=== PATIENT | male | born 1940 | race Hispanic/Latino ===

== ENCOUNTER → 2018-03-12 | Outpatient (CLI) | payer OTHER ==
[~2018-03-12] MED LIST: ASPI-1197 PO; FERROUS SULFATE PO; LISI1TAB11 PO; VITA1TAB22 PO
== END | disposition home or self-care (01) ==
LOC: SHCH 14:39
PROVIDERS: ATTEND Internal Medicine Cardiovascular Disease
DX: I34.0 Nonrheumatic mitral (valve) insufficiency (principal)
CPT/HCPCS: 93306

== ENCOUNTER → 2018-03-19 | Outpatient (CLI) | payer OTHER ==
[~2018-03-19] MED LIST changes: +REGADENOSON 0.4 MG/5 ML PF SYG IVP SCH
== END | disposition home or self-care (01) ==
LOC: SHCH 07:36 → EDUNIT# 08:00
PROVIDERS: ATTEND Internal Medicine Cardiovascular Disease
DX: R06.02 Shortness of breath (principal)
CPT/HCPCS: 78452; 93017; 96374; A9500 ×2; J2785

== ENCOUNTER 2018-04-14 06:32 | Day surgery (SDC) | payer OTHER ==
[2018-04-09 13:55] VITALS: BP 144/69
[2018-04-09 14:23] LABS: BASOPHILS % (AUTO) 0.7 % (0.0-5.0); EOSINOPHILS % (AUTO) 2.4 % (0.0-8.0); HEMATOCRIT 32.9 % (42-54); LYMPHOCYTES % (AUTO) 34.6 % (21.0-51.0); MEAN CORPUSCULAR HEMOGLOBIN 26.9 pg (27.0-33.0); MEAN CORPUSCULAR HGB CONC 33.8 g/dL (32.0-36.0); MEAN CORPUSCULAR VOLUME 79.5 fL (79-99); MONOCYTES % (AUTO) 6.9 % (3.0-13.0); NEUTROPHILS % (AUTO) 55.4 % (40.0-77.0); NUCLEATED RED BLOOD CELLS 0.1 % (0.0-0.19); PLATELET COUNT (AUTO) 266 K/uL (130-400); RED BLOOD CELL COUNT(AUTO) 4.14 MIL/uL (4.50-6.20); RED CELL DISTRIBUTION WIDTH 16.6 % (11.0-15.5); WHITE BLOOD COUNT (AUTO) 6.4 K/uL (4.8-10.8)
[2018-04-09 14:31] LABS: POTASSIUM 4.7 mmol/L (3.5-5.1)
[2018-04-09 14:31] LABS: APPEARANCE,URINE Clear (CLEAR); BILIRUBIN,URINE Negative (NEGATIVE); COLOR,URINE Yellow (YELLOW); GLUCOSE, URINE (UA) Negative (NEGATIVE); KETONES,URINE Negative (NEGATIVE); LEUKOCYTE ESTERASE ,URINE Negative (NEGATIVE); NITRATE,URINE Negative (NEGATIVE); OCCULT BLOOD,URINE Negative (NEGATIVE); PROTEIN,URINE Negative (NEGATIVE); UROBILINOGEN,URINE 0.2 mg/dL (0.2-1.0)
[2018-04-09 14:33] LABS: INR 0.91 (0.85-1.15); PARTIAL THROMBOPLASTIN TIME 25.9 SEC (26.3-35.5); PROTHROMBIN TIME 9.6 SEC (9.6-11.6)
[~2018-04-14] VITALS: Ht 172.7 cm; Wt 88.5 kg
[2018-04-14] VITALS (10 sets, daily range): BP systolic 121–153; BP diastolic 48–74
[~2018-04-14 06:32] MED LIST changes: -REGADENOSON 0.4 MG/5 ML PF SYG IVP SCH; +SODIUM CHLORIDE 0.9% 500ML 500 ML IV SCH
[2018-04-14] MEDS ORDERED: SODIUM CHLORIDE 0.9% 1000ML 1,000 ML IV ONE (07:39)
[2018-04-14] MEDS ORDERED: LIDOCAINE HCL MPF 1% 5ML VIAL ONE (08:39)
[2018-04-14] MEDS ORDERED: NITROGLYCERIN 5 MG/ML 10 ML VIAL IV ONE (08:40)
[2018-04-14] MEDS ORDERED: IOHEXOL-350 50ML VIAL IV ONE (08:40)
[2018-04-14] MEDS ORDERED: IOHEXOL 350 MG/ML 100ML INFUS..BTL IV ONE (08:40)
[2018-04-14] MEDS ORDERED: IOPAMIDOL-370 75 ML VIAL IV ONE (09:16)
[2018-04-14] MEDS ORDERED: SODIUM CHLORIDE 0.9% 1000ML 1,000 ML IV SCH (09:48)
[2018-04-14] MEDS ORDERED: GLUCAGON 1MG KIT 1 MG ML IM PRN (10:00)
[2018-04-14] MEDS ORDERED: METOPROLOL TARTRATE 1 MG/ML 5ML VIAL IV PRN (10:00)
[2018-04-14] MEDS ORDERED: DEXTROSE 50%-WATER 50 ML DISP.SYRIN IV PRN (10:00)
[2018-04-14] MEDS ORDERED: NITROGLYCERIN 0.4 MG SL TAB SL PRN (10:00)
[2018-04-14] MEDS ORDERED: SODIUM CHLORIDE 0.9% 10 ML VIAL IVP SCH (10:00)
[2018-04-15] MEDS ORDERED: FERROUS SULFATE 325 MG TABLET.DR PO SCH (09:00)
[2018-04-15] MEDS ORDERED: VITAMIN B COMPLEX 1 CAPSULE PO SCH (09:00)
[2018-04-15] MEDS ORDERED: ISOSORBIDE MONO 30MG TAB SR PO SCH (09:00)
[2018-04-15] MEDS ORDERED: HYDROCHLOROTHIAZIDE 25 MG TABLET PO SCH (09:00)
[2018-04-15] MEDS ORDERED: ASPIRIN 81MG TAB.CHEW PO SCH (09:00)
[2018-04-15] MEDS ORDERED: LISINOPRIL 20 MG TABLET PO SCH (09:00)
== END 2018-04-14 15:20 | disposition home or self-care (01) ==
LOC: DAH 06:32
PROVIDERS: ATTEND Internal Medicine Cardiovascular Disease
DX: I25.118 Atherosclerotic heart disease of native coronary artery with other forms of angina pectoris (principal); I65.23 Occlusion and stenosis of bilateral carotid arteries; I10 Essential (primary) hypertension; K21.9 Gastro-esophageal reflux disease without esophagitis; Z85.46 Personal history of malignant neoplasm of prostate; Z98.890 Other specified postprocedural states; Z79.899 Other long term (current) drug therapy; Z68.30 Body mass index [BMI] 30.0-30.9, adult; Z87.891 Personal history of nicotine dependence; I48.91 Unspecified atrial fibrillation; I05.9 Rheumatic mitral valve disease, unspecified
CPT/HCPCS: 36223; 36415 ×2; 71045; 80048; 81003; 85025; 85610; 85730; 93005; 93458; A4606; C1760; C1894 ×2; J1644; J3490; J7030; Q9965; Q9967 ×3; 81001

== ENCOUNTER 2018-06-19 08:38 | Inpatient (IN) | payer OTHER ==
[~2018-06-19] VITALS: Ht 170.2 cm; Wt 75.3 kg
[~2018-06-19 08:38] MED LIST changes: +ASPI-1181 PO; -ASPI-1197 PO; +FERR325T22 PO; -FERROUS SULFATE PO; +OMEP20CA10 PO; -SODIUM CHLORIDE 0.9% 500ML 500 ML IV SCH; -VITA1TAB22 PO
[2018-06-19 08:59] LABS: BASOPHILS % (AUTO) 0.7 % (0.0-5.0); EOSINOPHILS % (AUTO) 0.5 % (0.0-8.0); HEMATOCRIT 29.4 % (42-54); LYMPHOCYTES % (AUTO) 17.6 % (21.0-51.0); MEAN CORPUSCULAR HGB CONC 32.7 g/dL (32.0-36.0); MEAN CORPUSCULAR VOLUME 82.4 fL (79-99); MONOCYTES % (AUTO) 8.6 % (3.0-13.0); NEUTROPHILS % (AUTO) 72.6 % (40.0-77.0); PLATELET COUNT (AUTO) 267 K/uL (130-400); RED BLOOD CELL COUNT(AUTO) 3.57 MIL/uL (4.50-6.20); RED CELL DISTRIBUTION WIDTH 18.9 % (11.0-15.5); WHITE BLOOD COUNT (AUTO) 8.5 K/uL (4.8-10.8)
[2018-06-19 09:25] LABS: CREATININE 1.7 mg/dL (0.5-1.5); POTASSIUM 4.4 mmol/L (3.5-5.1)
[2018-06-19 09:30] LABS: INR 1.08 (0.85-1.15); PARTIAL THROMBOPLASTIN TIME 27.5 SEC (26.3-35.5); PROTHROMBIN TIME 11.3 SEC (9.6-11.6)
[2018-06-19] MEDS ORDERED: METOPROLOL TARTRATE 1 MG/ML 5ML VIAL IV ONE ×2 (09:31→10:35)
[2018-06-19 09:36] LABS: B-TYPE NATRIURETIC PEPTIDE 767 pg/mL (0-100)
[2018-06-19 09:40] LABS: ALBUMIN 3.3 g/dL (3.5-5.0); BILIRUBIN,TOTAL 0.9 mg/dL (0.2-1.0); CREATINE KINASE MB 1.4 ng/mL (0.5-3.6); TOTAL PROTEIN, SERUM 7.3 g/dL (6.0-8.3)
[2018-06-19] MEDS ORDERED: ASPIRIN 325 MG TABLET ONE (10:08)
[2018-06-19] MEDS ORDERED: FUROSEMIDE 10 MG/ML 2ML VIAL ONE (11:26)
[2018-06-19] MEDS ORDERED: LORAZEPAM 2 MG/ML 1 ML VIAL ONE (12:14)
[2018-06-19] MEDS ORDERED: ENOXAPARIN SODIUM 30 MG/0.3 ML SQ ONE (12:22)
[2018-06-19] MEDS ORDERED: LEVOFLOXACIN 750 MG/D5W 150 ML 150 ML ONE (12:23)
[2018-06-19] MEDS ORDERED: VANCOMYCIN 1GM+NS 250ML 250 ML IV ONE (14:54)
[2018-06-19 18:00] VITALS: BP 134/85
[2018-06-19] MEDS ORDERED: VANCOMYCIN PROTOCOL PER PHARMACY IV SCH (19:30)
[2018-06-19] MEDS ORDERED: COMPOUND IV REFRIGERATED 1 EACH IVSOLN MISC PRN (19:30)
[2018-06-19] MEDS ORDERED: DEXTROSE 50%-WATER 50 ML DISP.SYRIN IV PRN (19:30)
[2018-06-19] MEDS ORDERED: GLUCAGON 1MG KIT 1 MG ML IM PRN (19:30)
[2018-06-19 19:42] VITALS: BP 133/79
[2018-06-19] MEDS ORDERED: APIX5TAB PO (19:43)
[2018-06-19] MEDS ORDERED: FURO40TA5 PO (19:43)
[2018-06-19] MEDS ORDERED: METO100T14 PO (19:43)
[2018-06-19] MEDS ORDERED: ATOR40TA69 PO (19:43)
[2018-06-19] MEDS ORDERED: AMIO200T5 PO (19:43)
[2018-06-19] MEDS ORDERED: SODIUM CHLORIDE 0.9% 50 ML IV ONE (20:16)
[2018-06-19] MEDS: FUROSEMIDE 10 MG/ML 4ML VIAL IVP SCH (20:19)
[2018-06-19] MEDS: ZOSYN 3.375GM+NS 50ML 50 ML IV SCH (20:19)
[2018-06-19] MEDS: INSULIN R PO SS2 SQ SCH (20:26)
[2018-06-19] MEDS ORDERED: ZOSYN 3.375GM+NS 50ML 50 ML IV SCH (23:00)
[2018-06-19 23:32] VITALS: BP 137/75
[2018-06-20 03:49] VITALS: BP 135/75
[2018-06-20] MEDS: FUROSEMIDE 10 MG/ML 4ML VIAL IVP SCH ×3 (03:59→20:49)
[2018-06-20] MEDS: ZOSYN 3.375GM+NS 50ML 50 ML IV SCH ×3 (03:59→20:49)
[2018-06-20 04:23] LABS: HEMATOCRIT 28.3 % (42-54); MEAN CORPUSCULAR HEMOGLOBIN 26.9 pg (27.0-33.0); MEAN CORPUSCULAR HGB CONC 32.3 g/dL (32.0-36.0); MEAN CORPUSCULAR VOLUME 83.2 fL (79-99); PLATELET COUNT (AUTO) 226 K/uL (130-400); RED CELL DISTRIBUTION WIDTH 18.5 % (11.0-15.5); WHITE BLOOD COUNT (AUTO) 6.1 K/uL (4.8-10.8)
[2018-06-20 04:28] LABS: ALBUMIN 2.8 g/dL (3.5-5.0); BILIRUBIN,TOTAL 0.7 mg/dL (0.2-1.0); CREATININE 1.9 mg/dL (0.5-1.5); POTASSIUM 4.1 mmol/L (3.5-5.1); TOTAL PROTEIN, SERUM 6.5 g/dL (6.0-8.3)
[2018-06-20 04:48] LABS: LYMPHOCYTES % (MANUAL) 16 % (22-44); MAN.DIFF COMMENT-IMPRESSION MANUAL DIFFERENTIAL; MONOCYTES % (MANUAL) 7 % (2-9); SEGMENTED NEUTROPHILS % 77 % (40-70)
[2018-06-20 04:49] LABS: PLATELET MORPHOLOGY COMMENT ADEQUATE
[2018-06-20 04:58] LABS: B-TYPE NATRIURETIC PEPTIDE 958 pg/mL (0-100)
[2018-06-20 05:03] LABS: ABG BASE EXCESS 0.2 mmol/L (-2.0-3.0); ABG HCO3 26.3 mmol/L (21.0-28.0); ABG OXYGEN SATURATION 98.1 % (95.0-99.0); ABG PCO2 48 mmHg (35-48)
[2018-06-20] MEDS ORDERED: VANCOMYCIN 1.25 GM in SODIUM CHLORIDE 0.9% 250 ML IV SCH (06:00)
[2018-06-20] MEDS: INSULIN R PO SS2 SQ SCH ×3 (06:07→21:00)
[2018-06-20 07:00] VITALS: BP 137/78
[2018-06-20] MEDS ORDERED: ENOXAPARIN SODIUM 30 MG/0.3 ML SQ SCH (09:00)
[2018-06-20 11:00] VITALS: BP 137/78
[2018-06-20] MEDS: FAMOTIDINE/PF 20 MG/2 ML VIAL IV SCH (11:08)
[2018-06-20] MEDS: VANCOMYCIN 1.25 GM in SODIUM CHLORIDE 0.9% 250 ML IV SCH (11:14)
[2018-06-20 16:00] VITALS: BP 126/76
[2018-06-20 20:02] VITALS: BP 126/80
[2018-06-20] MEDS: ATORVASTATIN CALCIUM 40 MG TABLET PO SCH ×2 (20:50→21:00)
[2018-06-20] MEDS: METOPROLOL TARTRATE 50 MG TAB PO SCH ×2 (20:51→21:00)
[2018-06-20] MEDS: ENOXAPARIN SODIUM 30 MG/0.3 ML SQ SCH (20:52)
[2018-06-20 23:40] VITALS: BP 154/76
[2018-06-21 04:00] VITALS: BP 147/89
[2018-06-21] MEDS: ZOSYN 3.375GM+NS 50ML 50 ML IV SCH ×3 (04:11→20:19)
[2018-06-21] MEDS: FUROSEMIDE 10 MG/ML 4ML VIAL IVP SCH ×2 (04:12→11:37)
[2018-06-21] MEDS: INSULIN R PO SS2 SQ SCH ×4 (06:01→20:20)
[2018-06-21 06:15] LABS: CREATININE 2.1 mg/dL (0.5-1.5); POTASSIUM 3.9 mmol/L (3.5-5.1)
[2018-06-21 07:00] VITALS: BP 128/89
[2018-06-21] MEDS: AMIODARONE HCL 200 MG TABLET PO SCH (11:00)
[2018-06-21] MEDS: ENOXAPARIN SODIUM 30 MG/0.3 ML SQ SCH (11:00)
[2018-06-21] MEDS: METOPROLOL TARTRATE 50 MG TAB PO SCH (11:01)
[2018-06-21] MEDS: ASPIRIN 81 MG EC TAB PO SCH (11:01)
[2018-06-21] MEDS: FAMOTIDINE/PF 20 MG/2 ML VIAL IV SCH (11:02)
[2018-06-21] MEDS: VANCOMYCIN 1.25 GM in SODIUM CHLORIDE 0.9% 250 ML IV SCH (11:02)
[2018-06-21 11:34] VITALS: BP 125/77
[2018-06-21] MEDS: LEVOFLOXACIN 750 MG/D5W 150 ML 150 ML IV SCH (11:37)
[2018-06-21 12:03] LABS: HEMATOCRIT 29.2 % (42-54); MEAN CORPUSCULAR HEMOGLOBIN 26.2 pg (27.0-33.0); MEAN CORPUSCULAR HGB CONC 31.3 g/dL (32.0-36.0); MEAN CORPUSCULAR VOLUME 83.6 fL (79-99); NUCLEATED RED BLOOD CELLS 0.1 % (0.0-0.19); PLATELET COUNT (AUTO) 264 K/uL (130-400); RED BLOOD CELL COUNT(AUTO) 3.49 MIL/uL (4.50-6.20); RED CELL DISTRIBUTION WIDTH 18.3 % (11.0-15.5); WHITE BLOOD COUNT (AUTO) 7.6 K/uL (4.8-10.8)
[2018-06-21] MEDS ORDERED: METOPROLOL TARTRATE 1 MG/ML 5ML VIAL IV SCH (15:15)
[2018-06-21] MEDS ORDERED: FUROSEMIDE 10 MG/ML 2ML VIAL IV SCH (15:15)
[2018-06-21] MEDS ORDERED: METOPROLOL TARTRATE 1 MG/ML 5ML VIAL IV ONE (15:15)
[2018-06-21] MEDS ORDERED: CARVEDILOL 6.25 MG TABLET PO SCH (15:15)
[2018-06-21 15:19] VITALS: BP 122/70
[2018-06-21] MEDS: FUROSEMIDE 10 MG/ML 2ML VIAL IV SCH (17:12)
[2018-06-21 19:37] VITALS: BP 115/59
[2018-06-21] MEDS: ATORVASTATIN CALCIUM 40 MG TABLET PO SCH (20:12)
[2018-06-21] MEDS: CARVEDILOL 6.25 MG TABLET PO SCH (20:35)
[2018-06-21] MEDS: HYDRALAZINE HCL 10 MG TABLET PO SCH (20:36)
[2018-06-21 23:50] VITALS: BP 101/63
[2018-06-22 03:59] VITALS: BP 119/62
[2018-06-22] MEDS: ZOSYN 3.375GM+NS 50ML 50 ML IV SCH ×3 (05:45→20:58)
[2018-06-22] MEDS: FUROSEMIDE 10 MG/ML 2ML VIAL IV SCH (05:46)
[2018-06-22] MEDS: INSULIN R PO SS2 SQ SCH ×4 (05:56→21:00)
[2018-06-22 07:29] VITALS: BP 118/67
[2018-06-22 07:44] LABS: POTASSIUM 3.4 mmol/L (3.5-5.1)
[2018-06-22] MEDS ORDERED: ISOSORBIDE MONO 30MG TAB SR PO SCH (09:00)
[2018-06-22] MEDS: ASPIRIN 81 MG EC TAB PO SCH (09:25)
[2018-06-22] MEDS: APIXABAN 5 MG TABLET PO SCH ×2 (09:25→21:01)
[2018-06-22] MEDS: AMIODARONE HCL 200 MG TABLET PO SCH (09:25)
[2018-06-22] MEDS: HYDRALAZINE HCL 10 MG TABLET PO SCH ×3 (09:26→21:01)
[2018-06-22] MEDS: CARVEDILOL 6.25 MG TABLET PO SCH ×2 (09:26→21:01)
[2018-06-22] MEDS: FAMOTIDINE/PF 20 MG/2 ML VIAL IV SCH (09:27)
[2018-06-22] MEDS: FUROSEMIDE 20 MG TABLET PO SCH ×2 (09:27→18:44)
[2018-06-22] MEDS: VANCOMYCIN 1.25 GM in SODIUM CHLORIDE 0.9% 250 ML IV SCH (09:31)
[2018-06-22 11:25] VITALS: BP 109/59
[2018-06-22 16:37] VITALS: BP 109/64
[2018-06-22 19:40] VITALS: BP 137/62
[2018-06-22] MEDS: ATORVASTATIN CALCIUM 40 MG TABLET PO SCH (21:00)
[2018-06-22 23:44] VITALS: BP 111/64
[2018-06-23 04:00] VITALS: BP 108/64
[2018-06-23] MEDS: ZOSYN 3.375GM+NS 50ML 50 ML IV SCH ×3 (04:22→21:27)
[2018-06-23 04:35] LABS: CREATININE 1.9 mg/dL (0.5-1.5); POTASSIUM 3.4 mmol/L (3.5-5.1)
[2018-06-23] MEDS: INSULIN R PO SS2 SQ SCH ×4 (06:36→21:00)
[2018-06-23] MEDS: FUROSEMIDE 20 MG TABLET PO SCH ×4 (06:36→21:27)
[2018-06-23 07:24] VITALS: BP 115/66
[2018-06-23] MEDS: APIXABAN 5 MG TABLET PO SCH ×2 (09:27→21:28)
[2018-06-23] MEDS: FAMOTIDINE/PF 20 MG/2 ML VIAL IV SCH (09:27)
[2018-06-23] MEDS: HYDRALAZINE HCL 10 MG TABLET PO SCH ×3 (09:28→21:28)
[2018-06-23] MEDS: ASPIRIN 81 MG EC TAB PO SCH (09:28)
[2018-06-23] MEDS: CARVEDILOL 6.25 MG TABLET PO SCH ×2 (09:28→21:28)
[2018-06-23] MEDS: AMIODARONE HCL 200 MG TABLET PO SCH (09:28)
[2018-06-23] MEDS: VANCOMYCIN 1.25 GM in SODIUM CHLORIDE 0.9% 250 ML IV SCH (09:30)
[2018-06-23 11:42] VITALS: BP 120/61
[2018-06-23] MEDS: LEVOFLOXACIN 750 MG/D5W 150 ML 150 ML IV SCH (11:51)
[2018-06-23] MEDS ORDERED: POTASSIUM CHLORIDE 10% ELIXIR 20 MEQ/15 ML UDCUP PO SCH (12:00)
[2018-06-23] MEDS ORDERED: RENAL DOSE IV PRN (14:30)
[2018-06-23 16:26] VITALS: BP 112/69
[2018-06-23 19:53] VITALS: BP 128/65
[2018-06-23] MEDS: ATORVASTATIN CALCIUM 40 MG TABLET PO SCH (21:00)
[2018-06-23] MEDS: SPIRONOLACTONE 25 MG TAB PO SCH (21:27)
[2018-06-23 23:37] VITALS: BP 105/65
[2018-06-24 04:02] VITALS: BP 116/65
[2018-06-24 04:44] LABS: BASOPHILS % (AUTO) 0.4 % (0.0-5.0); EOSINOPHILS % (AUTO) 0.4 % (0.0-8.0); HEMATOCRIT 28.3 % (42-54); LYMPHOCYTES % (AUTO) 17.1 % (21.0-51.0); MEAN CORPUSCULAR HEMOGLOBIN 26.3 pg (27.0-33.0); MEAN CORPUSCULAR HGB CONC 31.8 g/dL (32.0-36.0); MEAN CORPUSCULAR VOLUME 82.7 fL (79-99); MONOCYTES % (AUTO) 9.1 % (3.0-13.0); NUCLEATED RED BLOOD CELLS 0.1 % (0.0-0.19); PLATELET COUNT (AUTO) 193 K/uL (130-400); RED BLOOD CELL COUNT(AUTO) 3.43 MIL/uL (4.50-6.20); RED CELL DISTRIBUTION WIDTH 18.4 % (11.0-15.5); WHITE BLOOD COUNT (AUTO) 6.4 K/uL (4.8-10.8)
[2018-06-24] MEDS: ZOSYN 3.375GM+NS 50ML 50 ML IV SCH (04:53)
[2018-06-24 04:58] LABS: CREATININE 1.8 mg/dL (0.5-1.5); POTASSIUM 3.3 mmol/L (3.5-5.1)
[2018-06-24 05:33] LABS: B-TYPE NATRIURETIC PEPTIDE 1080 pg/mL (0-100)
[2018-06-24] MEDS: FUROSEMIDE 20 MG TABLET PO SCH ×3 (06:04→21:40)
[2018-06-24] MEDS: INSULIN R PO SS2 SQ SCH ×4 (06:05→21:00)
[2018-06-24 07:00] VITALS: BP 125/79
[2018-06-24] MEDS: ASPIRIN 81 MG EC TAB PO SCH (08:34)
[2018-06-24] MEDS: HYDRALAZINE HCL 10 MG TABLET PO SCH ×3 (08:34→20:59)
[2018-06-24] MEDS: APIXABAN 5 MG TABLET PO SCH ×2 (08:34→20:59)
[2018-06-24] MEDS: CARVEDILOL 6.25 MG TABLET PO SCH ×2 (08:34→20:59)
[2018-06-24] MEDS: SPIRONOLACTONE 25 MG TAB PO SCH ×2 (08:35→20:58)
[2018-06-24] MEDS: FAMOTIDINE/PF 20 MG/2 ML VIAL IV SCH (08:35)
[2018-06-24] MEDS: AMIODARONE HCL 200 MG TABLET PO SCH (08:35)
[2018-06-24] MEDS ORDERED: ALBUTEROL SULFATE 0.083% 2.5 MG/3 ML INH IH ONE (09:28)
[2018-06-24] MEDS: VANCOMYCIN 1.25 GM in SODIUM CHLORIDE 0.9% 250 ML IV SCH (09:35)
[2018-06-24 11:00] VITALS: BP 115/58
[2018-06-24 16:00] VITALS: BP 116/68
[2018-06-24 19:00] VITALS: BP 111/75
[2018-06-24] MEDS: ATORVASTATIN CALCIUM 40 MG TABLET PO SCH (20:59)
[2018-06-24 23:00] VITALS: BP 98/58
[2018-06-25 03:00] VITALS: BP 120/77
[2018-06-25 04:42] LABS: HEMATOCRIT 28.5 % (42-54); MEAN CORPUSCULAR HEMOGLOBIN 26.8 pg (27.0-33.0); MEAN CORPUSCULAR HGB CONC 32.1 g/dL (32.0-36.0); MEAN CORPUSCULAR VOLUME 83.5 fL (79-99); NUCLEATED RED BLOOD CELLS 0.4 % (0.0-0.19); PLATELET COUNT (AUTO) 219 K/uL (130-400); RED BLOOD CELL COUNT(AUTO) 3.41 MIL/uL (4.50-6.20); RED CELL DISTRIBUTION WIDTH 18.3 % (11.0-15.5); WHITE BLOOD COUNT (AUTO) 6.6 K/uL (4.8-10.8)
[2018-06-25] MEDS: INSULIN R PO SS2 SQ SCH ×4 (05:49→21:00)
[2018-06-25] MEDS: FUROSEMIDE 20 MG TABLET PO SCH (05:59)
[2018-06-25 06:20] LABS: CREATININE 1.8 mg/dL (0.5-1.5); POTASSIUM 3.1 mmol/L (3.5-5.1)
[2018-06-25 07:51] VITALS: BP 117/73
[2018-06-25] MEDS ORDERED: POTASSIUM CHLORIDE 20 MEQ ERTAB PO ONE (07:59)
[2018-06-25] MEDS: APIXABAN 5 MG TABLET PO SCH ×2 (08:00→20:40)
[2018-06-25] MEDS: ASPIRIN 81 MG EC TAB PO SCH (08:00)
[2018-06-25] MEDS: AMIODARONE HCL 200 MG TABLET PO SCH (08:00)
[2018-06-25] MEDS: SPIRONOLACTONE 25 MG TAB PO SCH ×2 (08:00→20:39)
[2018-06-25] MEDS: HYDRALAZINE HCL 10 MG TABLET PO SCH ×3 (08:01→20:39)
[2018-06-25] MEDS: FAMOTIDINE/PF 20 MG/2 ML VIAL IV SCH (08:01)
[2018-06-25] MEDS: CARVEDILOL 6.25 MG TABLET PO SCH ×2 (08:01→20:39)
[2018-06-25] MEDS: FUROSEMIDE 40 MG TABLET PO SCH ×2 (09:00→20:40)
[2018-06-25 11:22] VITALS: BP 115/59
[2018-06-25 16:14] VITALS: BP 135/66
[2018-06-25 19:00] VITALS: BP 112/60
[2018-06-25] MEDS: ATORVASTATIN CALCIUM 40 MG TABLET PO SCH (20:39)
[2018-06-25 23:00] VITALS: BP 111/74
[2018-06-26 03:00] VITALS: BP 120/66
[2018-06-26 04:06] LABS: CREATININE 1.9 mg/dL (0.5-1.5); POTASSIUM 3.2 mmol/L (3.5-5.1)
[2018-06-26] MEDS: INSULIN R PO SS2 SQ SCH ×4 (06:04→20:33)
[2018-06-26 07:00] VITALS: BP 121/53
[2018-06-26] MEDS: FAMOTIDINE/PF 20 MG/2 ML VIAL IV SCH (08:04)
[2018-06-26] MEDS: APIXABAN 5 MG TABLET PO SCH ×2 (08:07→21:18)
[2018-06-26] MEDS: AMIODARONE HCL 200 MG TABLET PO SCH ×2 (08:07→08:59)
[2018-06-26] MEDS: ASPIRIN 81 MG EC TAB PO SCH (08:07)
[2018-06-26] MEDS: SPIRONOLACTONE 25 MG TAB PO SCH ×2 (08:07→21:18)
[2018-06-26] MEDS: HYDRALAZINE HCL 10 MG TABLET PO SCH ×3 (08:07→21:19)
[2018-06-26] MEDS: FUROSEMIDE 40 MG TABLET PO SCH ×3 (08:08→21:18)
[2018-06-26] MEDS: CARVEDILOL 6.25 MG TABLET PO SCH ×2 (08:08→21:18)
[2018-06-26] MEDS: POTASSIUM CHLORIDE 20 MEQ ERTAB PO SCH (08:55)
[2018-06-26] MEDS: METOLAZONE 2.5 MG TABLET PO SCH (08:58)
[2018-06-26 11:00] VITALS: BP 110/66
[2018-06-26 16:00] VITALS: BP 110/72
[2018-06-26 19:37] VITALS: BP 124/71
[2018-06-26] MEDS: ATORVASTATIN CALCIUM 40 MG TABLET PO SCH (21:00)
[2018-06-26 23:23] VITALS: BP 103/55
[2018-06-27 03:33] VITALS: BP 120/67
[2018-06-27 04:07] LABS: BASOPHILS % (AUTO) 0.9 % (0.0-5.0); EOSINOPHILS % (AUTO) 0.9 % (0.0-8.0); HEMATOCRIT 28.1 % (42-54); LYMPHOCYTES % (AUTO) 23.2 % (21.0-51.0); MEAN CORPUSCULAR HEMOGLOBIN 26.6 pg (27.0-33.0); MEAN CORPUSCULAR HGB CONC 32.6 g/dL (32.0-36.0); MEAN CORPUSCULAR VOLUME 81.6 fL (79-99); MONOCYTES % (AUTO) 10.7 % (3.0-13.0); NEUTROPHILS % (AUTO) 64.3 % (40.0-77.0); NUCLEATED RED BLOOD CELLS 0.1 % (0.0-0.19); PLATELET COUNT (AUTO) 213 K/uL (130-400); RED BLOOD CELL COUNT(AUTO) 3.45 MIL/uL (4.50-6.20); RED CELL DISTRIBUTION WIDTH 18.5 % (11.0-15.5); WHITE BLOOD COUNT (AUTO) 6.8 K/uL (4.8-10.8)
[2018-06-27 04:19] LABS: POTASSIUM 3.3 mmol/L (3.5-5.1)
[2018-06-27 04:28] LABS: B-TYPE NATRIURETIC PEPTIDE 1030 pg/mL (0-100)
[2018-06-27] MEDS: INSULIN R PO SS2 SQ SCH ×4 (05:49→20:23)
[2018-06-27 07:00] VITALS: BP 132/56
[2018-06-27] MEDS: AMIODARONE HCL 200 MG TABLET PO SCH (09:58)
[2018-06-27] MEDS: FUROSEMIDE 40 MG TABLET PO SCH (09:58)
[2018-06-27] MEDS: SPIRONOLACTONE 25 MG TAB PO SCH ×2 (09:59→20:10)
[2018-06-27] MEDS: POTASSIUM CHLORIDE 20 MEQ ERTAB PO SCH (09:59)
[2018-06-27] MEDS: ASPIRIN 81 MG EC TAB PO SCH (09:59)
[2018-06-27] MEDS: CARVEDILOL 6.25 MG TABLET PO SCH ×2 (09:59→20:10)
[2018-06-27] MEDS: APIXABAN 5 MG TABLET PO SCH ×2 (09:59→20:10)
[2018-06-27] MEDS: HYDRALAZINE HCL 10 MG TABLET PO SCH ×3 (10:00→21:00)
[2018-06-27] MEDS: FAMOTIDINE/PF 20 MG/2 ML VIAL IV SCH (10:00)
[2018-06-27 11:00] VITALS: BP 108/62
[2018-06-27 12:54] LABS: APPEARANCE,URINE Clear (CLEAR); BILIRUBIN,URINE Negative (NEGATIVE); COLOR,URINE Yellow (YELLOW); GLUCOSE, URINE (UA) Negative (NEGATIVE); KETONES,URINE Negative (NEGATIVE); LEUKOCYTE ESTERASE ,URINE Negative (NEGATIVE); NITRATE,URINE Negative (NEGATIVE); OCCULT BLOOD,URINE Negative (NEGATIVE); PROTEIN,URINE Negative (NEGATIVE); UROBILINOGEN,URINE 0.2 mg/dL (0.2-1.0)
[2018-06-27 13:01] LABS: BACTERIA,URINE None Seen /HPF (None Seen); HYALINE CASTS, URINE 0-1 /LPF (0-1 /LPF); MUCUS,URINE Rare LPF (None Seen); RBC,URINE None Seen /HPF (0-1); SQUAMOUS EPITHELIAL CELL,UR Rare /HPF (0-2); WBC,URINE None Seen /HPF (0-1)
[2018-06-27 16:00] VITALS: BP 104/62
[2018-06-27] MEDS ORDERED: POTASSIUM CHLORIDE 20 MEQ ERTAB PO SCH (16:00)
[2018-06-27] MEDS: FUROSEMIDE 10 MG/ML 10ML VIAL IVP SCH ×3 (16:34→21:00)
[2018-06-27 19:22] VITALS: BP 108/59
[2018-06-27] MEDS: SILVER SULFADIAZINE CREAM 50 GM TP SCH (20:11)
[2018-06-27] MEDS: ATORVASTATIN CALCIUM 40 MG TABLET PO SCH (20:24)
[2018-06-27 23:23] VITALS: BP 110/61
[2018-06-28 03:56] VITALS: BP 113/67
[2018-06-28 04:42] LABS: BASOPHILS % (AUTO) 0.6 % (0.0-5.0); EOSINOPHILS % (AUTO) 0.8 % (0.0-8.0); HEMATOCRIT 27.9 % (42-54); LYMPHOCYTES % (AUTO) 21.5 % (21.0-51.0); MEAN CORPUSCULAR HEMOGLOBIN 25.8 pg (27.0-33.0); MEAN CORPUSCULAR HGB CONC 31.9 g/dL (32.0-36.0); MEAN CORPUSCULAR VOLUME 80.9 fL (79-99); NEUTROPHILS % (AUTO) 67.1 % (40.0-77.0); NUCLEATED RED BLOOD CELLS 0.1 % (0.0-0.19); PLATELET COUNT (AUTO) 178 K/uL (130-400); RED BLOOD CELL COUNT(AUTO) 3.46 MIL/uL (4.50-6.20); RED CELL DISTRIBUTION WIDTH 18.2 % (11.0-15.5); WHITE BLOOD COUNT (AUTO) 6.8 K/uL (4.8-10.8)
[2018-06-28 04:59] LABS: % IRON SATURATION 7.1 % (30-44)
[2018-06-28 05:00] LABS: BILIRUBIN,TOTAL 0.7 mg/dL (0.2-1.0); CREATININE 2.2 mg/dL (0.5-1.5); PHOSPHORUS 4.1 mg/dL (2.5-4.9); POTASSIUM 3.6 mmol/L (3.5-5.1); THYROID STIMULATING HORMONE 0.88 uIU/mL (0.36-3.74); TOTAL PROTEIN, SERUM 6.5 g/dL (6.0-8.3); URIC ACID 10.6 mg/dL (2.6-7.2)
[2018-06-28] MEDS: INSULIN R PO SS2 SQ SCH ×4 (05:33→20:05)
[2018-06-28] MEDS: FUROSEMIDE 10 MG/ML 10ML VIAL IVP SCH (05:41)
[2018-06-28 07:00] VITALS: BP 121/59
[2018-06-28] MEDS: FAMOTIDINE/PF 20 MG/2 ML VIAL IV SCH (08:34)
[2018-06-28] MEDS: HYDRALAZINE HCL 10 MG TABLET PO SCH ×3 (08:34→21:00)
[2018-06-28] MEDS: METOLAZONE 2.5 MG TABLET PO SCH (08:34)
[2018-06-28] MEDS: SPIRONOLACTONE 25 MG TAB PO SCH ×2 (08:44→20:07)
[2018-06-28] MEDS: CARVEDILOL 6.25 MG TABLET PO SCH ×2 (08:44→20:07)
[2018-06-28] MEDS: FOLIC ACID/VITAMIN B COMP W-C 1 MG CAPSULE PO SCH (08:44)
[2018-06-28] MEDS: APIXABAN 5 MG TABLET PO SCH (08:45)
[2018-06-28] MEDS: AMIODARONE HCL 200 MG TABLET PO SCH (08:45)
[2018-06-28] MEDS: POTASSIUM CHLORIDE 20 MEQ ERTAB PO SCH (08:45)
[2018-06-28] MEDS: ASPIRIN 81 MG EC TAB PO SCH (08:45)
[2018-06-28] MEDS: SILVER SULFADIAZINE CREAM 50 GM TP SCH ×2 (09:00→20:09)
[2018-06-28] MEDS: FUROSEMIDE 10 MG/ML 4ML VIAL IVP SCH ×2 (09:00→20:08)
[2018-06-28 11:00] VITALS: BP 103/51
[2018-06-28] MEDS ORDERED: COMPOUND IV MISC 1 EACH IVSOLN MISC PRN (12:15)
[2018-06-28] MEDS: IRON SUCROSE COMPLEX 100 MG in SODIUM CHLORIDE 0.9% 50 ML IV SCH (14:42)
[2018-06-28 16:00] VITALS: BP 111/57
[2018-06-28 19:31] VITALS: BP 108/57
[2018-06-28] MEDS: ATORVASTATIN CALCIUM 40 MG TABLET PO SCH (20:05)
[2018-06-28] MEDS: PANTOPRAZOLE SODIUM 40 MG TABLET.DR PO SCH (20:08)
[2018-06-28 23:31] VITALS: BP 112/50
[2018-06-29 03:43] VITALS: BP 118/64
[2018-06-29 04:26] LABS: HEMATOCRIT 26.5 % (42-54); MEAN CORPUSCULAR HEMOGLOBIN 26.5 pg (27.0-33.0); MEAN CORPUSCULAR HGB CONC 32.7 g/dL (32.0-36.0); MEAN CORPUSCULAR VOLUME 81.2 fL (79-99); NUCLEATED RED BLOOD CELLS 0.1 % (0.0-0.19); PLATELET COUNT (AUTO) 202 K/uL (130-400); RED BLOOD CELL COUNT(AUTO) 3.26 MIL/uL (4.50-6.20); RED CELL DISTRIBUTION WIDTH 18.5 % (11.0-15.5); WHITE BLOOD COUNT (AUTO) 7.6 K/uL (4.8-10.8)
[2018-06-29 04:37] LABS: CREATININE 2.3 mg/dL (0.5-1.5); MAGNESIUM 2.1 mg/dL (1.80-2.40); POTASSIUM 3.4 mmol/L (3.5-5.1)
[2018-06-29 04:52] LABS: ABG BASE EXCESS 10.4 mmol/L (-2.0-3.0); ABG HCO3 35.9 mmol/L (21.0-28.0); ABG PCO2 51 mmHg (35-48)
[2018-06-29] MEDS: INSULIN R PO SS2 SQ SCH (06:39)
[2018-06-29 07:36] VITALS: BP 106/44
[2018-06-29] MEDS: HYDRALAZINE HCL 10 MG TABLET PO SCH ×2 (09:00→13:03)
[2018-06-29] MEDS: CARVEDILOL 6.25 MG TABLET PO SCH ×2 (09:42→21:26)
[2018-06-29] MEDS: METOLAZONE 2.5 MG TABLET PO SCH (09:42)
[2018-06-29] MEDS: ASPIRIN 81 MG EC TAB PO SCH (09:43)
[2018-06-29] MEDS: FOLIC ACID/VITAMIN B COMP W-C 1 MG CAPSULE PO SCH (10:11)
[2018-06-29] MEDS: AMIODARONE HCL 200 MG TABLET PO SCH (10:11)
[2018-06-29] MEDS: SILVER SULFADIAZINE CREAM 50 GM TP SCH ×2 (10:13→21:26)
[2018-06-29] MEDS: FUROSEMIDE 10 MG/ML 4ML VIAL IVP SCH (10:13)
[2018-06-29] MEDS: SPIRONOLACTONE 25 MG TAB PO SCH (10:13)
[2018-06-29] MEDS: IRON SUCROSE COMPLEX 100 MG in SODIUM CHLORIDE 0.9% 50 ML IV SCH (10:17)
[2018-06-29] MEDS: PANTOPRAZOLE SODIUM 40 MG TABLET.DR PO SCH ×2 (10:17→21:25)
[2018-06-29 11:39] VITALS: BP 95/60
[2018-06-29] MEDS ORDERED: FUROSEMIDE 40 MG TABLET PO SCH (14:30)
[2018-06-29 16:05] VITALS: BP 105/53
[2018-06-29] MEDS: FUROSEMIDE 40 MG TABLET PO SCH (16:05)
[2018-06-29 19:59] VITALS: BP 109/57
[2018-06-29] MEDS ORDERED: EPOETIN ALFA 10,000 UNIT/ML VIAL SQ SCH (20:00)
[2018-06-29] MEDS: ATORVASTATIN CALCIUM 40 MG TABLET PO SCH (21:00)
[2018-06-29] MEDS: IPRATROPIUM 0.5 MG/2.5 ML INH IH SCH (23:39)
[2018-06-30 00:17] VITALS: BP 108/56
[2018-06-30 03:26] VITALS: BP 107/58
[2018-06-30 04:38] LABS: HEMATOCRIT 26.2 % (42-54); MEAN CORPUSCULAR HEMOGLOBIN 26.3 pg (27.0-33.0); MEAN CORPUSCULAR HGB CONC 32.8 g/dL (32.0-36.0); MEAN CORPUSCULAR VOLUME 80.2 fL (79-99); NUCLEATED RED BLOOD CELLS 0.1 % (0.0-0.19); PLATELET COUNT (AUTO) 171 K/uL (130-400); RED BLOOD CELL COUNT(AUTO) 3.26 MIL/uL (4.50-6.20); RED CELL DISTRIBUTION WIDTH 18.5 % (11.0-15.5)
[2018-06-30 05:05] LABS: CREATININE 2.3 mg/dL (0.5-1.5); MAGNESIUM 2.2 mg/dL (1.80-2.40); POTASSIUM 3.4 mmol/L (3.5-5.1)
[2018-06-30] MEDS ORDERED: LEVOTHYROXINE 100 MCG TABLET ONE (05:55)
[2018-06-30] MEDS: IPRATROPIUM 0.5 MG/2.5 ML INH IH SCH ×4 (06:43→23:36)
[2018-06-30 07:46] VITALS: BP 109/54
[2018-06-30] MEDS: SILVER SULFADIAZINE CREAM 50 GM TP SCH ×2 (09:00→20:24)
[2018-06-30] MEDS: PANTOPRAZOLE SODIUM 40 MG TABLET.DR PO SCH ×2 (09:59→20:26)
[2018-06-30] MEDS: FUROSEMIDE 40 MG TABLET PO SCH ×2 (10:00→16:28)
[2018-06-30] MEDS: METOLAZONE 2.5 MG TABLET PO SCH (10:02)
[2018-06-30] MEDS: ASPIRIN 81 MG EC TAB PO SCH (10:06)
[2018-06-30] MEDS: FERROUS SULFATE 325 MG TABLET.DR PO SCH (10:07)
[2018-06-30] MEDS: FOLIC ACID/VITAMIN B COMP W-C 1 MG CAPSULE PO SCH (10:08)
[2018-06-30] MEDS: AMIODARONE HCL 200 MG TABLET PO SCH (10:10)
[2018-06-30] MEDS: CARVEDILOL 6.25 MG TABLET PO SCH ×2 (10:10→20:27)
[2018-06-30 11:41] VITALS: BP 112/55
[2018-06-30] MEDS ORDERED: POTASSIUM CHLORIDE 20 MEQ ERTAB PO SCH (12:30)
[2018-06-30 16:31] VITALS: BP 114/61
[2018-06-30 20:06] VITALS: BP 99/50
[2018-06-30] MEDS: ATORVASTATIN CALCIUM 40 MG TABLET PO SCH (20:23)
[2018-07-01] VITALS: BP 92/53
[2018-07-01 04:00] VITALS: BP 98/62
[2018-07-01 04:10] LABS: BASOPHILS % (AUTO) 0.6 % (0.0-5.0); EOSINOPHILS % (AUTO) 1.3 % (0.0-8.0); HEMATOCRIT 27.9 % (42-54); MEAN CORPUSCULAR HEMOGLOBIN 26.1 pg (27.0-33.0); MEAN CORPUSCULAR HGB CONC 32.6 g/dL (32.0-36.0); MEAN CORPUSCULAR VOLUME 80.1 fL (79-99); MONOCYTES % (AUTO) 9.8 % (3.0-13.0); NEUTROPHILS % (AUTO) 63.3 % (40.0-77.0); NUCLEATED RED BLOOD CELLS 0.1 % (0.0-0.19); PLATELET COUNT (AUTO) 217 K/uL (130-400); RED BLOOD CELL COUNT(AUTO) 3.48 MIL/uL (4.50-6.20); RED CELL DISTRIBUTION WIDTH 18.7 % (11.0-15.5); WHITE BLOOD COUNT (AUTO) 8.2 K/uL (4.8-10.8)
[2018-07-01 04:22] LABS: ALBUMIN 3.2 g/dL (3.5-5.0); BILIRUBIN,TOTAL 0.9 mg/dL (0.2-1.0); CREATININE 2.4 mg/dL (0.5-1.5); POTASSIUM 3.6 mmol/L (3.5-5.1); TOTAL PROTEIN, SERUM 6.8 g/dL (6.0-8.3)
[2018-07-01 04:47] LABS: B-TYPE NATRIURETIC PEPTIDE 619 pg/mL (0-100)
[2018-07-01] MEDS: IPRATROPIUM 0.5 MG/2.5 ML INH IH SCH ×3 (06:48→18:55)
[2018-07-01 07:00] VITALS: BP 108/54
[2018-07-01] MEDS ORDERED: MIDAZOLAM HCL 5 MG/ML 2ML VIAL IV PRN (08:30)
[2018-07-01] MEDS ORDERED: FENTANYL CITRATE PF 50 MCG/1 ML 2ML VIAL IVP PRN (08:30)
[2018-07-01] MEDS ORDERED: METOPROLOL TARTRATE 1 MG/ML 5ML VIAL IV PRN (08:30)
[2018-07-01] MEDS: PANTOPRAZOLE SODIUM 40 MG TABLET.DR PO SCH ×2 (10:28→21:09)
[2018-07-01] MEDS: METOLAZONE 2.5 MG TABLET PO SCH (10:29)
[2018-07-01] MEDS: FOLIC ACID/VITAMIN B COMP W-C 1 MG CAPSULE PO SCH (10:30)
[2018-07-01] MEDS: ASPIRIN 81 MG EC TAB PO SCH (10:31)
[2018-07-01] MEDS: FUROSEMIDE 40 MG TABLET PO SCH ×2 (10:31→16:24)
[2018-07-01] MEDS: FERROUS SULFATE 325 MG TABLET.DR PO SCH (10:31)
[2018-07-01] MEDS: METOPROLOL TARTRATE 25 MG TAB PO SCH ×2 (10:31→21:00)
[2018-07-01] MEDS: AMIODARONE HCL 200 MG TABLET PO SCH (10:32)
[2018-07-01] MEDS: SILVER SULFADIAZINE CREAM 50 GM TP SCH ×2 (10:33→21:17)
[2018-07-01 11:00] VITALS: BP 95/51
[2018-07-01 19:43] VITALS: BP 101/53
[2018-07-01] MEDS: ATORVASTATIN CALCIUM 40 MG TABLET PO SCH (21:00)
[2018-07-01 23:38] VITALS: BP 100/58
[2018-07-02] VITALS (8 sets, daily range): BP systolic 97–111; BP diastolic 49–68
[2018-07-02] MEDS: IPRATROPIUM 0.5 MG/2.5 ML INH IH SCH ×4 (00:28→18:21)
[2018-07-02] MEDS: SILVER SULFADIAZINE CREAM 50 GM TP SCH ×2 (09:00→22:08)
[2018-07-02] MEDS: ASPIRIN 81 MG EC TAB PO SCH ×2 (09:00→17:31)
[2018-07-02] MEDS: METOPROLOL TARTRATE 25 MG TAB PO SCH (09:00)
[2018-07-02] MEDS: FERROUS SULFATE 325 MG TABLET.DR PO SCH (09:00)
[2018-07-02] MEDS: FOLIC ACID/VITAMIN B COMP W-C 1 MG CAPSULE PO SCH (09:00)
[2018-07-02] MEDS: PANTOPRAZOLE SODIUM 40 MG TABLET.DR PO SCH ×2 (09:00→21:59)
[2018-07-02] MEDS ORDERED: MIDAZOLAM HCL 1 MG/ML 2ML VIAL ONE ×2 (13:41→14:08)
[2018-07-02] MEDS ORDERED: LIDOCAINE HCL 2% VISCOUS 15 ML UDCUP ONE (13:52)
[2018-07-02] MEDS: FUROSEMIDE 40 MG TABLET PO SCH ×2 (17:00→17:32)
[2018-07-02] MEDS ORDERED: ONDANSETRON HCL 4 MG/2 ML VIAL ONE (17:04)
[2018-07-02] MEDS: METOLAZONE 2.5 MG TABLET PO SCH (17:32)
[2018-07-02] MEDS: AMIODARONE HCL 200 MG TABLET PO SCH (17:32)
[2018-07-02] MEDS: ATORVASTATIN CALCIUM 40 MG TABLET PO SCH (21:00)
[2018-07-02] MEDS ORDERED: METOPROLOL TARTRATE 25 MG TAB PO SCH (21:00)
[2018-07-02] MEDS: CARVEDILOL 6.25 MG TABLET PO SCH (22:00)
[2018-07-03] MEDS: IPRATROPIUM 0.5 MG/2.5 ML INH IH SCH ×4 (01:58→18:39)
[2018-07-03 03:58] VITALS: BP 99/48
[2018-07-03 08:04] LABS: BASOPHILS % (AUTO) 0.9 % (0.0-5.0); EOSINOPHILS % (AUTO) 1.4 % (0.0-8.0); HEMATOCRIT 27.6 % (42-54); LYMPHOCYTES % (AUTO) 22.5 % (21.0-51.0); MEAN CORPUSCULAR HEMOGLOBIN 25.9 pg (27.0-33.0); MEAN CORPUSCULAR VOLUME 80.9 fL (79-99); MONOCYTES % (AUTO) 10.5 % (3.0-13.0); NEUTROPHILS % (AUTO) 64.7 % (40.0-77.0); PLATELET COUNT (AUTO) 178 K/uL (130-400); RED BLOOD CELL COUNT(AUTO) 3.41 MIL/uL (4.50-6.20); RED CELL DISTRIBUTION WIDTH 18.9 % (11.0-15.5); WHITE BLOOD COUNT (AUTO) 7.8 K/uL (4.8-10.8)
[2018-07-03 08:07] VITALS: BP 111/53
[2018-07-03 08:16] LABS: CREATININE 2.8 mg/dL (0.5-1.5); MAGNESIUM 2.4 mg/dL (1.80-2.40); PHOSPHORUS 4.3 mg/dL (2.5-4.9); POTASSIUM 3.7 mmol/L (3.5-5.1)
[2018-07-03] MEDS: AMIODARONE HCL 200 MG TABLET PO SCH (09:22)
[2018-07-03] MEDS: FOLIC ACID/VITAMIN B COMP W-C 1 MG CAPSULE PO SCH (09:22)
[2018-07-03] MEDS: PANTOPRAZOLE SODIUM 40 MG TABLET.DR PO SCH ×2 (09:22→20:27)
[2018-07-03] MEDS: FUROSEMIDE 40 MG TABLET PO SCH ×2 (09:23→17:10)
[2018-07-03] MEDS: CARVEDILOL 6.25 MG TABLET PO SCH ×2 (09:24→20:27)
[2018-07-03] MEDS: FERROUS SULFATE 325 MG TABLET.DR PO SCH (09:24)
[2018-07-03] MEDS: SILVER SULFADIAZINE CREAM 50 GM TP SCH ×2 (09:24→20:29)
[2018-07-03] MEDS ORDERED: APIXABAN 5 MG TABLET PO SCH (11:00)
[2018-07-03] MEDS: APIXABAN 5 MG TABLET PO SCH ×2 (11:51→20:28)
[2018-07-03 12:15] VITALS: BP 131/55
[2018-07-03 15:50] VITALS: BP 105/44
[2018-07-03 20:05] VITALS: BP 102/54
[2018-07-03] MEDS: ATORVASTATIN CALCIUM 40 MG TABLET PO SCH (20:28)
[2018-07-03 23:52] VITALS: BP 94/41
[2018-07-04] MEDS: IPRATROPIUM 0.5 MG/2.5 ML INH IH SCH ×5 (00:21→23:17)
[2018-07-04 03:45] LABS: HEMATOCRIT 24.5 % (42-54); MEAN CORPUSCULAR HEMOGLOBIN 26.6 pg (27.0-33.0); MEAN CORPUSCULAR VOLUME 80.7 fL (79-99); PLATELET COUNT (AUTO) 180 K/uL (130-400); RED BLOOD CELL COUNT(AUTO) 3.04 MIL/uL (4.50-6.20); WHITE BLOOD COUNT (AUTO) 7.1 K/uL (4.8-10.8)
[2018-07-04 03:49] VITALS: BP 95/46
[2018-07-04 03:50] LABS: POTASSIUM 3.5 mmol/L (3.5-5.1)
[2018-07-04 08:08] VITALS: BP 104/49
[2018-07-04] MEDS: CARVEDILOL 6.25 MG TABLET PO SCH ×2 (08:31→21:04)
[2018-07-04] MEDS: AMIODARONE HCL 200 MG TABLET PO SCH (08:32)
[2018-07-04] MEDS: PANTOPRAZOLE SODIUM 40 MG TABLET.DR PO SCH ×2 (08:32→21:04)
[2018-07-04] MEDS: FUROSEMIDE 40 MG TABLET PO SCH ×2 (08:32→16:26)
[2018-07-04] MEDS: SILVER SULFADIAZINE CREAM 50 GM TP SCH ×2 (08:32→21:03)
[2018-07-04] MEDS: FERROUS SULFATE 325 MG TABLET.DR PO SCH (08:32)
[2018-07-04] MEDS: FOLIC ACID/VITAMIN B COMP W-C 1 MG CAPSULE PO SCH (08:32)
[2018-07-04] MEDS: ASPIRIN 81 MG EC TAB PO SCH (08:32)
[2018-07-04] MEDS: APIXABAN 5 MG TABLET PO SCH ×2 (08:32→21:04)
[2018-07-04 11:24] VITALS: BP 104/50
[2018-07-04 16:08] VITALS: BP 114/63
[2018-07-04] MEDS ORDERED: PHARMACY COMMUNICATION MISC SCH (18:45)
[2018-07-04 19:49] VITALS: BP 90/45
[2018-07-04] MEDS: ATORVASTATIN CALCIUM 40 MG TABLET PO SCH (21:03)
[2018-07-04] MEDS: GUAIFENESIN 600 MG TABLET.ER PO PRN (22:18)
[2018-07-04] MEDS: ALBUTEROL SULFATE 0.042% 1.25 MG/3 ML INH IH SCH (23:17)
[2018-07-04 23:56] VITALS: BP 88/47
[2018-07-05 03:43] VITALS: BP 112/57
[2018-07-05 03:59] LABS: HEMATOCRIT 23.9 % (42-54); MEAN CORPUSCULAR HEMOGLOBIN 26.1 pg (27.0-33.0); MEAN CORPUSCULAR HGB CONC 32.2 g/dL (32.0-36.0); PLATELET COUNT (AUTO) 156 K/uL (130-400); RED BLOOD CELL COUNT(AUTO) 2.95 MIL/uL (4.50-6.20); RED CELL DISTRIBUTION WIDTH 19.4 % (11.0-15.5); WHITE BLOOD COUNT (AUTO) 7.4 K/uL (4.8-10.8)
[2018-07-05 04:06] LABS: POTASSIUM 3.5 mmol/L (3.5-5.1)
[2018-07-05] MEDS: IPRATROPIUM 0.5 MG/2.5 ML INH IH SCH ×4 (06:33→23:37)
[2018-07-05] MEDS: ALBUTEROL SULFATE 0.042% 1.25 MG/3 ML INH IH SCH ×4 (06:33→23:37)
[2018-07-05 08:06] VITALS: BP 116/48
[2018-07-05] MEDS: ASPIRIN 81 MG EC TAB PO SCH (08:42)
[2018-07-05] MEDS: FUROSEMIDE 40 MG TABLET PO SCH ×2 (08:42→16:20)
[2018-07-05] MEDS: APIXABAN 5 MG TABLET PO SCH ×2 (08:42→20:34)
[2018-07-05] MEDS: CARVEDILOL 6.25 MG TABLET PO SCH ×2 (08:43→20:34)
[2018-07-05] MEDS: FOLIC ACID/VITAMIN B COMP W-C 1 MG CAPSULE PO SCH (08:43)
[2018-07-05] MEDS: FERROUS SULFATE 325 MG TABLET.DR PO SCH (08:43)
[2018-07-05] MEDS: AMIODARONE HCL 200 MG TABLET PO SCH (08:43)
[2018-07-05] MEDS: SILVER SULFADIAZINE CREAM 50 GM TP SCH ×2 (08:44→20:36)
[2018-07-05] MEDS: PANTOPRAZOLE SODIUM 40 MG TABLET.DR PO SCH ×2 (08:49→20:33)
[2018-07-05] MEDS: GUAIFENESIN 600 MG TABLET.ER PO PRN ×2 (08:49→22:44)
[2018-07-05 11:29] VITALS: BP 92/42
[2018-07-05 16:14] VITALS: BP 99/43
[2018-07-05 19:44] VITALS: BP 94/48
[2018-07-05] MEDS: ATORVASTATIN CALCIUM 40 MG TABLET PO SCH (20:33)
[2018-07-05 23:23] VITALS: BP 88/44
[2018-07-06 04:03] VITALS: BP 100/50
[2018-07-06 04:03] LABS: HEMATOCRIT 21.5 % (42-54); MEAN CORPUSCULAR HEMOGLOBIN 26.5 pg (27.0-33.0); MEAN CORPUSCULAR HGB CONC 32.9 g/dL (32.0-36.0); MEAN CORPUSCULAR VOLUME 80.7 fL (79-99); PLATELET COUNT (AUTO) 174 K/uL (130-400); RED BLOOD CELL COUNT(AUTO) 2.67 MIL/uL (4.50-6.20); RED CELL DISTRIBUTION WIDTH 19.1 % (11.0-15.5); WHITE BLOOD COUNT (AUTO) 8.1 K/uL (4.8-10.8)
[2018-07-06 04:17] LABS: ALBUMIN 3.1 g/dL (3.5-5.0); BILIRUBIN,TOTAL 0.8 mg/dL (0.2-1.0); CREATININE 2.9 mg/dL (0.5-1.5); POTASSIUM 3.7 mmol/L (3.5-5.1); TOTAL PROTEIN, SERUM 6.2 g/dL (6.0-8.3)
[2018-07-06] MEDS: IPRATROPIUM 0.5 MG/2.5 ML INH IH SCH ×3 (06:38→23:46)
[2018-07-06] MEDS: ALBUTEROL SULFATE 0.042% 1.25 MG/3 ML INH IH SCH ×3 (06:38→23:47)
[2018-07-06 07:52] VITALS: BP 96/47
[2018-07-06] MEDS: ASPIRIN 81 MG EC TAB PO SCH (09:00)
[2018-07-06] MEDS: APIXABAN 5 MG TABLET PO SCH (09:00)
[2018-07-06] MEDS: FERROUS SULFATE 325 MG TABLET.DR PO SCH (09:06)
[2018-07-06] MEDS: CARVEDILOL 6.25 MG TABLET PO SCH ×2 (09:06→21:37)
[2018-07-06] MEDS: PANTOPRAZOLE SODIUM 40 MG TABLET.DR PO SCH ×2 (09:06→21:36)
[2018-07-06] MEDS: AMIODARONE HCL 200 MG TABLET PO SCH (09:06)
[2018-07-06] MEDS: FOLIC ACID/VITAMIN B COMP W-C 1 MG CAPSULE PO SCH (09:06)
[2018-07-06] MEDS: SILVER SULFADIAZINE CREAM 50 GM TP SCH ×2 (09:09→21:00)
[2018-07-06] MEDS: FUROSEMIDE 20 MG TABLET PO SCH ×2 (11:03→17:26)
[2018-07-06] MEDS ORDERED: SODIUM CHLORIDE 0.9% 250 ML IV ONE (11:31)
[2018-07-06 11:35] VITALS: BP 101/40
[2018-07-06 16:31] VITALS: BP 112/52
[2018-07-06 17:26] LABS: HEMATOCRIT 23.5 % (42-54)
[2018-07-06] MEDS: EPOETIN ALFA 10,000 UNIT/ML VIAL SQ SCH (17:27)
[2018-07-06] MEDS ORDERED: HEPARIN 25000 UNITS/250 ML D5W 250 ML IV PRN (17:45)
[2018-07-06 19:50] VITALS: BP 113/48
[2018-07-06] MEDS ORDERED: HEPARIN SODIUM 5000UNIT/ML 1ML VIAL IV SCH ×2 (21:30)
[2018-07-06] MEDS: ATORVASTATIN CALCIUM 40 MG TABLET PO SCH (21:36)
[2018-07-06 23:58] VITALS: BP 103/59
[2018-07-07] VITALS (11 sets, daily range): BP systolic 97–115; BP diastolic 40–75
[2018-07-07 00:42] LABS: HEMATOCRIT 23.2 % (42-54)
[2018-07-07 04:02] LABS: BASOPHILS % (AUTO) 0.9 % (0.0-5.0); HEMATOCRIT 21.9 % (42-54); LYMPHOCYTES % (AUTO) 26.8 % (21.0-51.0); MEAN CORPUSCULAR HEMOGLOBIN 27.1 pg (27.0-33.0); MEAN CORPUSCULAR HGB CONC 33.2 g/dL (32.0-36.0); MEAN CORPUSCULAR VOLUME 81.4 fL (79-99); MONOCYTES % (AUTO) 7.5 % (3.0-13.0); NEUTROPHILS % (AUTO) 63.8 % (40.0-77.0); PLATELET COUNT (AUTO) 160 K/uL (130-400); RED BLOOD CELL COUNT(AUTO) 2.69 MIL/uL (4.50-6.20); RED CELL DISTRIBUTION WIDTH 19.4 % (11.0-15.5)
[2018-07-07 04:09] LABS: CREATININE 2.7 mg/dL (0.5-1.5); POTASSIUM 3.2 mmol/L (3.5-5.1)
[2018-07-07] MEDS: FOLIC ACID/VITAMIN B COMP W-C 1 MG CAPSULE PO SCH (08:57)
[2018-07-07] MEDS: FERROUS SULFATE 325 MG TABLET.DR PO SCH (08:57)
[2018-07-07] MEDS: PANTOPRAZOLE SODIUM 40 MG TABLET.DR PO SCH ×2 (08:58→20:32)
[2018-07-07] MEDS: AMIODARONE HCL 200 MG TABLET PO SCH (08:58)
[2018-07-07] MEDS: FUROSEMIDE 20 MG TABLET PO SCH ×2 (08:58→17:39)
[2018-07-07] MEDS: CARVEDILOL 6.25 MG TABLET PO SCH ×2 (08:59→20:32)
[2018-07-07] MEDS: SILVER SULFADIAZINE CREAM 50 GM TP SCH ×2 (10:29→20:32)
[2018-07-07 11:46] LABS: HEMATOCRIT 20.7 % (42-54)
[2018-07-07] MEDS: IPRATROPIUM 0.5 MG/2.5 ML INH IH SCH ×3 (12:00→23:43)
[2018-07-07] MEDS: ALBUTEROL SULFATE 0.042% 1.25 MG/3 ML INH IH SCH ×3 (12:00→23:43)
[2018-07-07] MEDS ORDERED: PROTAMINE SULFATE 10 MG/ML 5 ML VIAL IVP SCH (12:30)
[2018-07-07] MEDS ORDERED: SODIUM CHLORIDE 0.9% 500ML 500 ML IV ONE (13:05)
[2018-07-07 20:23] LABS: HEMATOCRIT 24.6 % (42-54)
[2018-07-07] MEDS: GUAIFENESIN 600 MG TABLET.ER PO PRN (20:31)
[2018-07-07] MEDS: ATORVASTATIN CALCIUM 40 MG TABLET PO SCH (20:31)
[2018-07-08] VITALS (15 sets, daily range): BP systolic 97–132; BP diastolic 35–81
[2018-07-08 03:29] LABS: HEMATOCRIT 24.2 % (42-54)
[2018-07-08] MEDS: ALBUTEROL SULFATE 0.042% 1.25 MG/3 ML INH IH SCH ×4 (06:39→23:48)
[2018-07-08] MEDS: IPRATROPIUM 0.5 MG/2.5 ML INH IH SCH ×4 (06:39→23:48)
[2018-07-08] MEDS: SILVER SULFADIAZINE CREAM 50 GM TP SCH ×2 (09:00→22:04)
[2018-07-08] MEDS: AMIODARONE HCL 200 MG TABLET PO SCH (09:46)
[2018-07-08] MEDS: PANTOPRAZOLE SODIUM 40 MG TABLET.DR PO SCH ×2 (09:46→22:02)
[2018-07-08] MEDS: FUROSEMIDE 20 MG TABLET PO SCH ×2 (09:46→17:12)
[2018-07-08] MEDS: FERROUS SULFATE 325 MG TABLET.DR PO SCH (09:46)
[2018-07-08] MEDS: CARVEDILOL 6.25 MG TABLET PO SCH ×2 (09:47→22:03)
[2018-07-08] MEDS: FOLIC ACID/VITAMIN B COMP W-C 1 MG CAPSULE PO SCH (09:59)
[2018-07-08 10:28] LABS: HEMATOCRIT 24.5 % (42-54)
[2018-07-08 10:34] LABS: CREATININE 2.3 mg/dL (0.5-1.5); POTASSIUM 3.3 mmol/L (3.5-5.1)
[2018-07-08] MEDS: ATORVASTATIN CALCIUM 40 MG TABLET PO SCH (22:02)
[2018-07-08 22:38] LABS: HEMATOCRIT 23.5 % (42-54)
[2018-07-09 03:41] VITALS: BP 104/45
[2018-07-09 04:04] LABS: BASOPHILS % (AUTO) 0.5 % (0.0-5.0); EOSINOPHILS % (AUTO) 0.9 % (0.0-8.0); HEMATOCRIT 21.7 % (42-54); LYMPHOCYTES % (AUTO) 32.3 % (21.0-51.0); MEAN CORPUSCULAR HEMOGLOBIN 27.4 pg (27.0-33.0); MEAN CORPUSCULAR HGB CONC 32.8 g/dL (32.0-36.0); MEAN CORPUSCULAR VOLUME 83.6 fL (79-99); MONOCYTES % (AUTO) 8.1 % (3.0-13.0); NEUTROPHILS % (AUTO) 58.2 % (40.0-77.0); PLATELET COUNT (AUTO) 134 K/uL (130-400); RED BLOOD CELL COUNT(AUTO) 2.59 MIL/uL (4.50-6.20); RED CELL DISTRIBUTION WIDTH 17.6 % (11.0-15.5); WHITE BLOOD COUNT (AUTO) 7.5 K/uL (4.8-10.8)
[2018-07-09 04:28] LABS: ALBUMIN 2.6 g/dL (3.5-5.0); BILIRUBIN,TOTAL 0.9 mg/dL (0.2-1.0); CREATININE 2.2 mg/dL (0.5-1.5); POTASSIUM 3.1 mmol/L (3.5-5.1); TOTAL PROTEIN, SERUM 5.3 g/dL (6.0-8.3)
[2018-07-09] MEDS: IPRATROPIUM 0.5 MG/2.5 ML INH IH SCH ×4 (06:41→23:24)
[2018-07-09] MEDS: ALBUTEROL SULFATE 0.042% 1.25 MG/3 ML INH IH SCH ×4 (06:41→23:24)
[2018-07-09 07:00] VITALS: BP 118/50
[2018-07-09] MEDS ORDERED: POTASSIUM CHLORIDE 10MEQ/100ML 100 ML IV PRN (07:00)
[2018-07-09] MEDS ORDERED: POTASSIUM CHLORIDE 10% ELIXIR 20 MEQ/15 ML UDCUP PO PRN (07:00)
[2018-07-09] MEDS ORDERED: LIDOCAINE HCL-MPF 1% 2ML VIAL IVP PRN (07:00)
[2018-07-09] MEDS: FOLIC ACID/VITAMIN B COMP W-C 1 MG CAPSULE PO SCH (09:25)
[2018-07-09] MEDS: POTASSIUM CHLORIDE 20 MEQ ERTAB PO PRN ×3 (09:25→17:45)
[2018-07-09] MEDS: AMIODARONE HCL 200 MG TABLET PO SCH (09:26)
[2018-07-09] MEDS: FERROUS SULFATE 325 MG TABLET.DR PO SCH (09:27)
[2018-07-09] MEDS: PANTOPRAZOLE SODIUM 40 MG TABLET.DR PO SCH ×2 (09:27→22:39)
[2018-07-09] MEDS: CARVEDILOL 6.25 MG TABLET PO SCH ×2 (09:27→22:39)
[2018-07-09] MEDS: SILVER SULFADIAZINE CREAM 50 GM TP SCH ×2 (09:28→22:39)
[2018-07-09 11:00] VITALS: BP 127/57
[2018-07-09] MEDS ORDERED: FUROSEMIDE 40 MG TABLET PO SCH (11:45)
[2018-07-09 16:00] VITALS: BP 120/58
[2018-07-09 16:10] LABS: HEMATOCRIT 22.5 % (42-54)
[2018-07-09] MEDS: FUROSEMIDE 20 MG TABLET PO SCH (17:45)
[2018-07-09 19:38] VITALS: BP 112/53
[2018-07-10] VITALS (7 sets, daily range): BP systolic 98–113; BP diastolic 38–56
[2018-07-10 04:15] LABS: CREATININE 2.3 mg/dL (0.5-1.5); MAGNESIUM 2.1 mg/dL (1.80-2.40); POTASSIUM 3.4 mmol/L (3.5-5.1)
[2018-07-10 04:33] LABS: BASOPHILS % (AUTO) 0.7 % (0.0-5.0); EOSINOPHILS % (AUTO) 1.1 % (0.0-8.0); LYMPHOCYTES % (AUTO) 29.2 % (21.0-51.0); MEAN CORPUSCULAR HEMOGLOBIN 27.2 pg (27.0-33.0); MEAN CORPUSCULAR HGB CONC 32.2 g/dL (32.0-36.0); MEAN CORPUSCULAR VOLUME 84.5 fL (79-99); MONOCYTES % (AUTO) 6.5 % (3.0-13.0); NEUTROPHILS % (AUTO) 62.5 % (40.0-77.0); NUCLEATED RED BLOOD CELLS 0.1 % (0.0-0.19); PLATELET COUNT (AUTO) 136 K/uL (130-400); RED BLOOD CELL COUNT(AUTO) 2.44 MIL/uL (4.50-6.20); RED CELL DISTRIBUTION WIDTH 18.1 % (11.0-15.5); WHITE BLOOD COUNT (AUTO) 6.8 K/uL (4.8-10.8)
[2018-07-10] MEDS: POTASSIUM CHLORIDE 20 MEQ ERTAB PO PRN ×2 (04:35→06:35)
[2018-07-10 04:37] LABS: HEMATOCRIT 20.6 % (42-54)
[2018-07-10] MEDS: ALBUTEROL SULFATE 0.042% 1.25 MG/3 ML INH IH SCH ×2 (06:19→19:04)
[2018-07-10] MEDS: IPRATROPIUM 0.5 MG/2.5 ML INH IH SCH ×3 (06:19→19:05)
[2018-07-10] MEDS: FERROUS SULFATE 325 MG TABLET.DR PO SCH (09:03)
[2018-07-10] MEDS: CARVEDILOL 6.25 MG TABLET PO SCH ×2 (09:03→22:21)
[2018-07-10] MEDS: PANTOPRAZOLE SODIUM 40 MG TABLET.DR PO SCH ×2 (09:03→22:21)
[2018-07-10] MEDS: AMIODARONE HCL 200 MG TABLET PO SCH (09:03)
[2018-07-10] MEDS: FOLIC ACID/VITAMIN B COMP W-C 1 MG CAPSULE PO SCH (09:03)
[2018-07-10] MEDS: FUROSEMIDE 40 MG TABLET PO SCH (09:03)
[2018-07-10] MEDS: SILVER SULFADIAZINE CREAM 50 GM TP SCH ×2 (09:05→22:29)
[2018-07-10] MEDS ORDERED: FUROSEMIDE 10 MG/ML 2ML VIAL IV SCH (09:15)
[2018-07-10 11:43] LABS: HEMATOCRIT 25.1 % (42-54)
[2018-07-10] MEDS: FUROSEMIDE 20 MG TABLET PO SCH (16:18)
[2018-07-10 17:41] LABS: HEMATOCRIT 25.6 % (42-54)
[2018-07-11] VITALS (13 sets, daily range): BP systolic 98–142; BP diastolic 43–70
[2018-07-11] MEDS: ALBUTEROL SULFATE 0.042% 1.25 MG/3 ML INH IH SCH ×4 (00:29→18:47)
[2018-07-11] MEDS: IPRATROPIUM 0.5 MG/2.5 ML INH IH SCH ×4 (00:29→18:47)
[2018-07-11 04:20] LABS: HEMATOCRIT 22.6 % (42-54)
[2018-07-11] MEDS ORDERED: PROPOFOL 10 MG/ML 20ML VIAL IV ONE (08:28)
[2018-07-11] MEDS: CARVEDILOL 6.25 MG TABLET PO SCH ×2 (11:13→21:19)
[2018-07-11] MEDS: FERROUS SULFATE 325 MG TABLET.DR PO SCH (11:14)
[2018-07-11] MEDS: PANTOPRAZOLE SODIUM 40 MG TABLET.DR PO SCH (11:14)
[2018-07-11] MEDS: AMIODARONE HCL 200 MG TABLET PO SCH (11:14)
[2018-07-11] MEDS: FOLIC ACID/VITAMIN B COMP W-C 1 MG CAPSULE PO SCH (11:14)
[2018-07-11] MEDS: FUROSEMIDE 40 MG TABLET PO SCH (11:14)
[2018-07-11] MEDS: SILVER SULFADIAZINE CREAM 50 GM TP SCH ×2 (11:14→21:23)
[2018-07-11] MEDS ORDERED: PEG 3350/NA SULF,BICARB,CL/KCL 4000 ML SOLN PO SCH (14:00)
[2018-07-11] MEDS: FUROSEMIDE 20 MG TABLET PO SCH (16:47)
[2018-07-12] VITALS (13 sets, daily range): BP systolic 81–136; BP diastolic 42–62
[2018-07-12] MEDS: IPRATROPIUM 0.5 MG/2.5 ML INH IH SCH ×4 (01:20→18:50)
[2018-07-12] MEDS: ALBUTEROL SULFATE 0.042% 1.25 MG/3 ML INH IH SCH ×4 (01:21→18:51)
[2018-07-12 04:44] LABS: HEMATOCRIT 23.7 % (42-54); MEAN CORPUSCULAR HEMOGLOBIN 27.6 pg (27.0-33.0); MEAN CORPUSCULAR HGB CONC 32.5 g/dL (32.0-36.0); MEAN CORPUSCULAR VOLUME 84.8 fL (79-99); NUCLEATED RED BLOOD CELLS 0.1 % (0.0-0.19); PLATELET COUNT (AUTO) 149 K/uL (130-400); RED CELL DISTRIBUTION WIDTH 17.9 % (11.0-15.5); WHITE BLOOD COUNT (AUTO) 6.4 K/uL (4.8-10.8)
[2018-07-12 04:51] LABS: CREATININE 1.9 mg/dL (0.5-1.5); POTASSIUM 3.1 mmol/L (3.5-5.1)
[2018-07-12 05:05] LABS: BAND NEUTROPHILS % (MANUAL) 2 % (0-2); BASOPHILS % (MANUAL) 2 % (0-2); LYMPHOCYTES % (MANUAL) 35 % (22-44); MONOCYTES % (MANUAL) 3 % (2-9); SEGMENTED NEUTROPHILS % 58 % (40-70)
[2018-07-12 05:06] LABS: MAN.DIFF COMMENT-IMPRESSION MANUAL DIFFERENTIAL; PLATELET MORPHOLOGY COMMENT ADEQUATE
[2018-07-12] MEDS: PANTOPRAZOLE SODIUM 40 MG TABLET.DR PO SCH (07:30)
[2018-07-12] MEDS ORDERED: PROPOFOL 1000 MG/100 ML 100 ML IV ONE (07:51)
[2018-07-12] MEDS ORDERED: LIDOCAINE HCL-MPF 2% 5ML VIAL ONE (07:51)
[2018-07-12] MEDS ORDERED: GLYCOPYRROLATE 0.2 MG/ML 5 ML VIAL ONE (07:52)
[2018-07-12] MEDS: FERROUS SULFATE 325 MG TABLET.DR PO SCH (09:37)
[2018-07-12] MEDS: CARVEDILOL 6.25 MG TABLET PO SCH ×2 (09:37→21:15)
[2018-07-12] MEDS: POTASSIUM CHLORIDE 20 MEQ ERTAB PO PRN ×2 (09:38→16:32)
[2018-07-12] MEDS: FUROSEMIDE 40 MG TABLET PO SCH (09:38)
[2018-07-12] MEDS: FOLIC ACID/VITAMIN B COMP W-C 1 MG CAPSULE PO SCH (09:38)
[2018-07-12] MEDS: AMIODARONE HCL 200 MG TABLET PO SCH (09:40)
[2018-07-12] MEDS: SILVER SULFADIAZINE CREAM 50 GM TP SCH ×2 (09:47→21:15)
[2018-07-12] MEDS: FUROSEMIDE 20 MG TABLET PO SCH (16:32)
[2018-07-12] MEDS: ATORVASTATIN CALCIUM 20 MG TABLET PO SCH (21:08)
[2018-07-13] MEDS: IPRATROPIUM 0.5 MG/2.5 ML INH IH SCH ×5 (00:05→23:43)
[2018-07-13] MEDS: ALBUTEROL SULFATE 0.042% 1.25 MG/3 ML INH IH SCH ×5 (00:06→23:43)
[2018-07-13 04:04] VITALS: BP 92/40
[2018-07-13 04:23] LABS: HEMATOCRIT 22.9 % (42-54); MEAN CORPUSCULAR HEMOGLOBIN 28.1 pg (27.0-33.0); MEAN CORPUSCULAR HGB CONC 32.5 g/dL (32.0-36.0); MEAN CORPUSCULAR VOLUME 86.4 fL (79-99); PLATELET COUNT (AUTO) 164 K/uL (130-400); RED BLOOD CELL COUNT(AUTO) 2.65 MIL/uL (4.50-6.20); RED CELL DISTRIBUTION WIDTH 17.9 % (11.0-15.5); WHITE BLOOD COUNT (AUTO) 6.1 K/uL (4.8-10.8)
[2018-07-13 04:37] LABS: CREATININE 1.9 mg/dL (0.5-1.5); POTASSIUM 3.3 mmol/L (3.5-5.1)
[2018-07-13 07:45] VITALS: BP 118/52
[2018-07-13] MEDS: AMIODARONE HCL 200 MG TABLET PO SCH (07:59)
[2018-07-13] MEDS: POTASSIUM CHLORIDE 20 MEQ ERTAB PO SCH (08:00)
[2018-07-13] MEDS: CARVEDILOL 6.25 MG TABLET PO SCH ×2 (08:00→21:19)
[2018-07-13] MEDS: FERROUS SULFATE 325 MG TABLET.DR PO SCH (08:00)
[2018-07-13] MEDS: PANTOPRAZOLE SODIUM 40 MG TABLET.DR PO SCH (08:00)
[2018-07-13] MEDS: FUROSEMIDE 40 MG TABLET PO SCH (08:00)
[2018-07-13] MEDS: FOLIC ACID/VITAMIN B COMP W-C 1 MG CAPSULE PO SCH (08:01)
[2018-07-13] MEDS: SILVER SULFADIAZINE CREAM 50 GM TP SCH ×2 (08:31→21:20)
[2018-07-13 11:23] VITALS: BP 103/46
[2018-07-13] MEDS: APIXABAN 2.5 MG TABLET PO SCH ×2 (12:03→21:19)
[2018-07-13 16:17] VITALS: BP 105/48
[2018-07-13] MEDS: FUROSEMIDE 20 MG TABLET PO SCH (16:46)
[2018-07-13 19:59] VITALS: BP 98/42
[2018-07-13] MEDS: ATORVASTATIN CALCIUM 20 MG TABLET PO SCH (21:19)
[2018-07-14] VITALS: BP 92/49
[2018-07-14 04:15] LABS: MEAN CORPUSCULAR HEMOGLOBIN 27.9 pg (27.0-33.0); MEAN CORPUSCULAR HGB CONC 32.4 g/dL (32.0-36.0); MEAN CORPUSCULAR VOLUME 86.1 fL (79-99); PLATELET COUNT (AUTO) 158 K/uL (130-400); RED BLOOD CELL COUNT(AUTO) 2.55 MIL/uL (4.50-6.20); RED CELL DISTRIBUTION WIDTH 18.1 % (11.0-15.5); WHITE BLOOD COUNT (AUTO) 5.2 K/uL (4.8-10.8)
[2018-07-14 04:26] LABS: INR 1.06 (0.85-1.15); PARTIAL THROMBOPLASTIN TIME 28.3 SEC (26.3-35.5); PROTHROMBIN TIME 11.1 SEC (9.6-11.6)
[2018-07-14 04:29] LABS: CREATININE 1.8 mg/dL (0.5-1.5); MAGNESIUM 1.7 mg/dL (1.80-2.40); POTASSIUM 3.2 mmol/L (3.5-5.1)
[2018-07-14 04:37] VITALS: BP 94/42
[2018-07-14] MEDS: IPRATROPIUM 0.5 MG/2.5 ML INH IH SCH ×2 (05:53→11:13)
[2018-07-14] MEDS: ALBUTEROL SULFATE 0.042% 1.25 MG/3 ML INH IH SCH ×2 (05:53→11:13)
[2018-07-14] MEDS: FERROUS SULFATE 325 MG TABLET.DR PO SCH (07:30)
[2018-07-14] MEDS: APIXABAN 2.5 MG TABLET PO SCH (07:30)
[2018-07-14] MEDS: CARVEDILOL 6.25 MG TABLET PO SCH (07:30)
[2018-07-14] MEDS: PANTOPRAZOLE SODIUM 40 MG TABLET.DR PO SCH (07:30)
[2018-07-14] MEDS: AMIODARONE HCL 200 MG TABLET PO SCH (07:31)
[2018-07-14] MEDS: POTASSIUM CHLORIDE 20 MEQ ERTAB PO SCH (07:31)
[2018-07-14] MEDS: FOLIC ACID/VITAMIN B COMP W-C 1 MG CAPSULE PO SCH (07:31)
[2018-07-14] MEDS: SILVER SULFADIAZINE CREAM 50 GM TP SCH (07:31)
[2018-07-14] MEDS: FUROSEMIDE 40 MG TABLET PO SCH (07:41)
[2018-07-14 08:19] VITALS: BP 98/46
[2018-07-14] MEDS: EPOETIN ALFA 10,000 UNIT/ML VIAL SQ SCH ×2 (09:26→09:37)
[2018-07-14 11:23] VITALS: BP 93/46
[2018-07-14] MEDS ORDERED: CARV6.2579 PO (13:27)
[2018-07-14] MEDS ORDERED: FERR324T4 PO (13:27)
[2018-07-14] MEDS ORDERED: Folic Acid/Vitamin B Comp W-C PO (13:27)
[2018-07-14] MEDS ORDERED: PANT40TA PO (13:27)
[2018-07-14 13:43] VITALS: BP 102/54
== END 2018-07-14 14:45 | disposition home or self-care (01) | DRG 291 ==
LOC: EDH 08:38 → EDHIP 11:50 → 2AH 18:34 → 2CH 07-07 14:10 → 2BH 07-08 09:42 → 2AH 07-10 15:42
PROVIDERS: ADMIT Internal Medicine; ATTEND Internal Medicine
PROC: 5A09357 Assistance with Respiratory Ventilation, Less than 24 Consecutive Hours, Continuous Positive Airway Pressure (ICD-10-PCS; principal; 2018-06-19)
PROC: 30233N1 Transfusion of Nonautologous Red Blood Cells into Peripheral Vein, Percutaneous Approach (ICD-10-PCS; 2018-06-19)
PROC: 5A09357 Assistance with Respiratory Ventilation, Less than 24 Consecutive Hours, Continuous Positive Airway Pressure (ICD-10-PCS; 2018-06-20)
PROC: 5A09357 Assistance with Respiratory Ventilation, Less than 24 Consecutive Hours, Continuous Positive Airway Pressure (ICD-10-PCS; 2018-06-21)
PROC: 5A09357 Assistance with Respiratory Ventilation, Less than 24 Consecutive Hours, Continuous Positive Airway Pressure (ICD-10-PCS; 2018-06-22)
PROC: 0DB68ZX Excision of Stomach, Via Natural or Artificial Opening Endoscopic, Diagnostic (ICD-10-PCS; 2018-07-11)
PROC: 0DBK8ZZ Excision of Ascending Colon, Via Natural or Artificial Opening Endoscopic (ICD-10-PCS; 2018-07-12)
PROC: 0DBL8ZZ Excision of Transverse Colon, Via Natural or Artificial Opening Endoscopic (ICD-10-PCS; 2018-07-12)
DX: I13.0 Hypertensive heart and chronic kidney disease with heart failure and stage 1 through stage 4 chronic kidney disease, or unspecified chronic kidney disease (principal); J96.01 Acute respiratory failure with hypoxia; I50.43 Acute on chronic combined systolic (congestive) and diastolic (congestive) heart failure; J18.9 Pneumonia, unspecified organism; R57.8 Other shock; N17.9 Acute kidney failure, unspecified; K92.1 Melena; I48.1 Persistent atrial fibrillation; J44.0 Chronic obstructive pulmonary disease with (acute) lower respiratory infection; C78.7 Secondary malignant neoplasm of liver and intrahepatic bile duct; D62 Acute posthemorrhagic anemia; D68.9 Coagulation defect, unspecified; L03.116 Cellulitis of left lower limb; N18.4 Chronic kidney disease, stage 4 (severe); I42.9 Cardiomyopathy, unspecified; I25.10 Atherosclerotic heart disease of native coronary artery without angina pectoris; E66.01 Morbid (severe) obesity due to excess calories; I48.2 Chronic atrial fibrillation; Z66 Do not resuscitate; I08.1 Rheumatic disorders of both mitral and tricuspid valves; D12.0 Benign neoplasm of cecum; D50.0 Iron deficiency anemia secondary to blood loss (chronic); E11.22 Type 2 diabetes mellitus with diabetic chronic kidney disease; E11.51 Type 2 diabetes mellitus with diabetic peripheral angiopathy without gangrene; E78.5 Hyperlipidemia, unspecified; F79 Unspecified intellectual disabilities; G47.33 Obstructive sleep apnea (adult) (pediatric); H91.90 Unspecified hearing loss, unspecified ear; I27.29 Other secondary pulmonary hypertension; I27.81 Cor pulmonale (chronic); I48.0 Paroxysmal atrial fibrillation; I89.0 Lymphedema, not elsewhere classified; K20.9 Esophagitis, unspecified; K29.70 Gastritis, unspecified, without bleeding; K63.5 Polyp of colon; K64.1 Second degree hemorrhoids; K57.30 Diverticulosis of large intestine without perforation or abscess without bleeding; K55.20 Angiodysplasia of colon without hemorrhage; Z68.26 Body mass index [BMI] 26.0-26.9, adult; Z74.01 Bed confinement status; Z95.1 Presence of aortocoronary bypass graft; Z87.891 Personal history of nicotine dependence; Z91.19 Patient's noncompliance with other medical treatment and regimen; Z79.01 Long term (current) use of anticoagulants; Z79.82 Long term (current) use of aspirin; Z79.899 Other long term (current) drug therapy; Z85.46 Personal history of malignant neoplasm of prostate; Z90.79 Acquired absence of other genital organ(s); Z91.14 Patient's other noncompliance with medication regimen
CPT/HCPCS: 36415; 36600; 43239; 45380; 45385; 71045; 71250; 76770; 78278; 80048; 80053; 80202; 81001; 82270; 82550; 82553; 82803; 82948; 83540; 83550; 83735; 83880; 84100; 84443; 84484; 84550; 85014; 85018; 85025; 85027; 85610; 85730; 86850; 86900; 86901; 86922; 87040; 87804; 88305; 92960; 93005; 93306; 93313; 93970; 94060; 94640; 94660; 94664; 94667; 94668; 97039; 99291; A9512; C1769; J0885; J1644; J1650; J1756; J1940; J1956; J2060; J2250; J2405; J2543; J2704; J2720; J3010; J3370; J3490; J7030; J7040; P9016

== ENCOUNTER → 2019-01-15 | Outpatient (CLI) | payer OTHER ==
[~2019-01-15] MED LIST changes: +AMIO200T5 PO; -ASPI-1181 PO; +ATOR40TA69 PO; +CARV6.2579 PO; +FERR324T4 PO; -FERR325T22 PO; +FURO40TA5 PO; +Folic Acid/Vitamin B Comp W-C PO; +IPRNEB IH; +LEVO500T2 PO; -LISI1TAB11 PO; -OMEP20CA10 PO; +PANT40TA PO
== END | disposition home or self-care (01) ==
LOC: SHCH 13:47
PROVIDERS: ATTEND Internal Medicine Cardiovascular Disease
DX: I07.1 Rheumatic tricuspid insufficiency (principal); I25.10 Atherosclerotic heart disease of native coronary artery without angina pectoris; Z95.1 Presence of aortocoronary bypass graft
CPT/HCPCS: 93306

== ENCOUNTER → 2019-10-27 | Outpatient (CLI) | payer OTHER | END | disposition home or self-care (01) | LOC: OIH 10:39 | PROVIDERS: ATTEND Internal Medicine | DX: J44.9 Chronic obstructive pulmonary disease, unspecified (principal); Z98.890 Other specified postprocedural states | CPT/HCPCS: 71046 ==

== ENCOUNTER → 2020-04-05 | Outpatient (CLI) | payer OTHER | END | disposition home or self-care (01) | LOC: SHCH 10:44 | PROVIDERS: ATTEND Internal Medicine Cardiovascular Disease | DX: I34.0 Nonrheumatic mitral (valve) insufficiency (principal); I51.7 Cardiomegaly | CPT/HCPCS: 93306 ==